=== PATIENT | male | born 1975 | race Caucasian/White ===

== ENCOUNTER 2019-03-17 12:15 | Emergency (ER) | payer SELFPAY ==
--- NOTE | 2019-03-17 12:42 | ED.PDOC ---
History of Present Illness - General Chief Complaint: Upper Extremity Injury Stated Complaint: Decreased ROM to R shoulder/discomfort Time Seen by Provider: 03/17/19 12:38 Source: patient Exam Limitations: no limitations - History of Present Illness Initial Comments: Patient presents with right shoulder pain after a fall two weeks ago. He was "playing" with friends and a large person fell on top of him as he struck the lateral right shoulder on the ground. The pain is at the distal right clavicle, non-radiating, constant, aching in nature, worse with movement, better with rest. Denies previous injuries to the area. No other complaints. Timing/Duration: other - two weeks Severity: mild Improving Factors: rest Worsening Factors: movement Associated Symptoms: denies symptoms Allergies/Adverse Reactions: Allergies NO KNOWN ALLERGY Allergy (Verified 03/17/19 12:33) Home Medications: Ambulatory Orders NK 03/17/19 Review of Systems - Review of Systems Constitutional: States: no symptoms reported EENTM: States: no symptoms reported Respiratory: States: no symptoms reported Cardiology: States: no symptoms reported Gastrointestinal/Abdominal: States: no symptoms reported Genitourinary: States: no symptoms reported Musculoskeletal: States: see HPI Skin: States: no symptoms reported Neurological: States: no symptoms reported Endocrine: States: no symptoms reported Hematologic/Lymphatic: States: no symptoms reported Past Medical History (General) - Patient Medical History Hx Stroke: No Hx Congestive Heart Failure: No Hx Diabetes: No Hx MRSA: Yes - Lungs - w/pneumonia approx 2007 - Vaccination History Hx Tetanus, Diphtheria Vaccination: No Hx Influenza Vaccination: No Hx Pneumococcal Vaccination: No - Social History Hx Tobacco Use: No Hx Alcohol Use: No Family Medical History - Family History Father Family History: No Known Living Status: Still Living Hx Cardiac Disease: Yes Physical Exam - Physical Exam General Appearance: Alert Eye Exam: bilateral normal Ears, Nose, Throat: normal ENT inspection Neck: non-tender, full range of motion, supple Respiratory: lungs clear, normal breath sounds Cardiovascular/Chest: normal peripheral pulses, regular rate, rhythm Gastrointestinal/Abdominal: normal bowel sounds, non tender, soft Back Exam: normal inspection, no CVA tenderness Extremity: other - "Beer can" sign is positive. There is pain with abduction of the right humerus located at the distal 1/3 of the right clavicle. Patient is unable to elevate the right arm to horizontal laterally for a teres minor exam. No deltoid dimpling with longitudinal traction in a relaxing anatomical position. A-C joint NTTP. Neurologic: normal mood/affect, oriented x 3 Progress - Progress Progress: 03/17/19 13:12 Radiographs of the right shoulder showed no fractures, dislocations, nor bony abnormalities. Patient was provided with a sling and care instructions. Care instructions given. E.R. warnings given. Questions were elicited and answered. Patient voiced understanding and agreement with the plan. Departure - Departure Clinical Impression: Rotator cuff arthropathy of right shoulder Disposition: Discharge to Home or Self Care Condition: Good Departure Forms: ED Discharge - Pt. Copy, Patient Portal Self Enrollment Instructions: DI for Arm Pain, Rotator Cuff Injury (DC) Diet: resume usual diet Activity: increase activity as tolerated Home Medications: Ambulatory Orders NK 03/17/19 Additional Instructions: Wear sling as needed for pain. Follow up with an orthopedic surgeon if pain has not significantly improved in the next two weeks.
--- NOTE | 2019-03-17 13:01 | RAD ---
EXAM: XR Right Shoulder Complete, 2 or More Views CLINICAL HISTORY: 43 years old and is Male; 3 view w/a Y view TECHNIQUE: Two or more views of the right shoulder. COMPARISON: No relevant prior studies available. FINDINGS: Limitations: None. Bones/joints: Unremarkable. No acute fracture. No dislocation. Soft tissues: Unremarkable. IMPRESSION: No acute findings. Electronically signed by: Heeln Bellamy MD 03/17/2019 12:58 PM CDT
[2019-03-17 13:56] VITALS: BP 125/94; TEMP 97.1; O2SAT 96
== END 2019-03-17 13:26 | disposition home or self-care (01) ==
LOC: ER 12:15
DX: M19.011 Primary osteoarthritis, right shoulder (principal)